=== PATIENT | male | born 1965 | race Caucasian/White ===

== ENCOUNTER → 2020-04-10 | Outpatient (CLI) | payer OTHER ==
--- NOTE | 2020-04-10 12:10 | XR ---
EXAMINATION TYPE: XR shoulder complete LT DATE OF EXAM: 04/10/2020 CLINICAL HISTORY: Pain after injury. TECHNIQUE: Three views of the left shoulder are obtained. COMPARISON: None. FINDINGS: There is no acute fracture/dislocation evident in the left shoulder. [id number] na rrowing of acromial navicular joint with mild narrowing. Mild narrowing glenohumeral joint. The visua lized ribs are intact and unremarkable. IMPRESSION: There is no acute fracture or dislocation in the left shoulder.
== END | disposition home or self-care (01) ==
LOC: RADXRMAIN 11:34
PROVIDERS: ATTEND Emergency Medicine
DX: S46.012A Strain of muscle(s) and tendon(s) of the rotator cuff of left shoulder, initial encounter (principal)

== ENCOUNTER → 2020-06-16 | Outpatient (CLI) | payer OTHER ==
--- NOTE | 2020-06-17 06:26 | MR ---
EXAMINATION TYPE: MR shoulder LT wo con DATE OF EXAM: 06/16/2020 COMPARISON: Left shoulder x-ray April 10, 2020 HISTORY: Left shoulder pain. Possible rotator cuff tear. TECHNIQUE: Multiplanar, multisequence imaging of the left shoulder is performed without contrast. FINDINGS: Rotator Cuff: Distal supraspinatus and infraspinatus tendons are intact. Distal subscapularis tendon is intact. Rotator cuff muscle bulk is preserved. Acromioclavicular Joint: Moderate to severe narrowing and capsular hypertrophy of the acromioclavicul ar joint but underlying fat plane is maintained. There is type II downsloping acromion but preservati on of underlying fat plane Glenohumeral Joint: Mild to moderate narrowing without significant spurring. Small joint effusion Labrum: The labrum appears grossly intact given limitation of non-arthrogram study. Biceps Tendon: The long head of biceps is in normal location within bicipital groove. Intracapsular p ortion appears to show some thickening and diffuse increased signal. Bone marrow signal: No focal abnormal marrow signal is appreciated. Other: No additional significant abnormality is appreciated. IMPRESSION: Degenerative changes as detailed above. No rotator cuff tear is identified.
== END | disposition home or self-care (01) ==
LOC: RADMRIMAIN 16:23
PROVIDERS: ATTEND Orthopaedic Surgery Sports Medicine
DX: M19.012 Primary osteoarthritis, left shoulder (principal)

== ENCOUNTER → 2024-10-12 | Outpatient (CLI) | payer BC ==
--- NOTE | 2024-10-12 15:11 | MR ---
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 L1-L2: Mild disc desiccation with a left paracentral disc bulge and effacement of ventral thecal sac. There is constriction of the thecal sac without overt stenosis at this time. There is mild left-side d foraminal encroachment. L2-L3: Mild to moderate disc desiccation with posterior disc bulge. Hypertrophy of ligamentum flavum and facet joint arthropathy contribute to [id number] central stenosis. There is mild bilateral foraminal encroachment. No disc herniation present. L3-L4: Moderate disc desiccation with posterior disc bulge. Hypertrophy of ligamentum flavum and face t joint arthropathy contribute to [id number] central stenosis. There is mild bilateral foramina l encroachment. No disc herniation present. L4-L5: Moderate disc desiccation with posterior disc bulge. Hypertrophy of ligamentum flavum and face t joint arthropathy contribute to moderate central stenosis. There is mild bilateral foraminal encroa chment. No disc herniation present. L5-S1: Normal disc appearance without desiccation. No herniation, protrusion or disc bulging. No ca nal stenosis is present. Foramina are patent bilaterally. Lumbar segments are intact. No paraspinal masses are identified. Conus medullaris has a normal appe arance. IMPRESSION: 1. Multilevel degenerative disc disease. 2. Multilevel central stenosis and foraminal encroachment as outlined above. [facility], , 10/12/2024 3:08 PM
== END | disposition home or self-care (01) ==
LOC: RADMRIMAIN 14:12
PROVIDERS: ATTEND Physical Medicine & Rehabilitation
DX: M48.061 Spinal stenosis, lumbar region without neurogenic claudication (principal); M51.16 Intervertebral disc disorders with radiculopathy, lumbar region
CPT/HCPCS: 72148